=== PATIENT | female | born 2000 | race Hispanic/Latino ===

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

== ENCOUNTER 2023-05-16 11:54 | Emergency (ER) | payer BC, SELFPAY ==
[2023-05-16] MEDS ORDERED: Ondansetron ODT 4 MG TAB ONE (12:25)
[2023-05-16] MEDS ORDERED: Acetaminophen 500 MG TAB ONE (12:25)
[2023-05-16 13:11] LABS: Influenza A by NAA Not Detected (NotDetected); Influenza B by NAA Not Detected (NotDetected); SARS-CoV-2 NAA Rapid Test Not Detected (NotDetected)
== END 2023-05-16 13:15 | disposition home or self-care (01) ==
LOC: ERS 11:54
DX: B34.9 Viral infection, unspecified (principal); Z55.6 Problems related to health literacy; Z75.3 Unavailability and inaccessibility of health-care facilities
CPT/HCPCS: 99283; Q0162